=== PATIENT | male | born 1990 | race Two or more races ===

== ENCOUNTER 2017-06-19 12:05 | Emergency (ER) | payer MEDICAID ==
[~2017-06-19] VITALS: Ht 172.7 cm; Wt 68.0 kg
[2017-06-19 12:30] VITALS: BP 136/85
== END 2017-06-19 13:08 | disposition home or self-care (01) ==
LOC: ER 12:05
DX: J02.9 Acute pharyngitis, unspecified (principal)

== ENCOUNTER 2017-07-14 08:43 | Emergency (ER) | payer MEDICAID ==
[~2017-07-14] VITALS: Ht 172.7 cm; Wt 72.6 kg
[2017-07-14 09:03] VITALS: BP 132/89
== END 2017-07-14 09:30 | disposition home or self-care (01) ==
LOC: ER 08:43
DX: J20.9 Acute bronchitis, unspecified (principal)

== ENCOUNTER 2017-08-27 17:15 | Emergency (ER) | payer MEDICAID ==
[~2017-08-27] VITALS: Ht 172.7 cm; Wt 72.6 kg
[2017-08-27 20:27] VITALS: BP 134/91
[2017-08-27] MEDS ORDERED: DEXAMETHASONE 4 MG TAB PO ONE (20:45)
== END 2017-08-27 20:58 | disposition home or self-care (01) ==
LOC: ER 17:19
DX: J06.9 Acute upper respiratory infection, unspecified (principal)
CPT/HCPCS: 99283; J8540